=== PATIENT | male | born 1965 | race African-American/Black ===

== ENCOUNTER 2019-02-27 14:19 | Emergency (ER) | payer BC ==
[2019-02-27] MEDS: KETOROLAC 60 MG INJ IM (16:46)
== END 2019-02-27 18:04 | disposition home or self-care (01) ==
LOC: FTE 14:19
DX: S52.324A Nondisplaced transverse fracture of shaft of right radius, initial encounter for closed fracture (principal); S00.511A Abrasion of lip, initial encounter; F17.210 Nicotine dependence, cigarettes, uncomplicated; I10 Essential (primary) hypertension; W14.XXXA Fall from tree, initial encounter; Y92.9 Unspecified place or not applicable
CPT/HCPCS: 29125; 71100; 73110-RT; 96372; 99284-25